=== PATIENT | male | born 1990 | race Caucasian/White ===

== ENCOUNTER 2016-11-03 19:03 | Emergency (ER) | payer SELFPAY ==
[~2016-11-03] VITALS: Ht 180.3 cm; Wt 74.8 kg
[~2016-11-03 19:03] MED LIST: MUPI15CR TP; SULF1TAB24 PO
--- NOTE | 2016-11-03 20:57 | PHYS DOC ---
General Chief Complaint: LOWER EXT PAIN Stated Complaint: LEFT LEG PAIN Time Seen by MD: 19:25 Source: patient Problems: History of Present Illness Initial Comments Patient here for left thigh swelling. Patient says over the last week, he's had a feeling of discomfort over the lateral aspect of left thigh. About 2 days ago he noted some redness and swelling over the area, which seems to be getting worse today. He has no history of injury or trauma to the area, no history of direct contacts to the area such as a heating pad for another object. He's had no fever or chills with this. Is no runny nose or sore throat. There is no chest pain or shortness of breath. He has no nausea vomiting or abdominal pain. No change in bowel or bladder habits. He states he has some chronic low back pain due to degenerative disease but this is not acutely changed or different anyway. He denies any other focal extremity or neurologic complaints and specifically denies any distal complaints of weakness numbness or tingling within the left lower extremity. Patient's done nothing for this prior to arrival in the ER no factors are noted that increase or decrease his discomfort. Patient states he was over at [facility] today but they were apparently dealing with an irate prisoner and he decided to come over here to be seen faster. Patient's past nuchal history is remarkable for degenerative disc disease as noted. He does admit to a history of IV drug abuse and has been seen previously for cellulitis of the hand. He says his been on Septra multiple times for skin infections as well. He also has hepatitis C as a result of IV drug use. He smokes a half-pack of cigarettes daily. He is nonuser of ethanol. He does admit to IV drug use. He is to do methamphetamine and narcotics, but is really doing opiates mostly now. He last shot up a few weeks ago. He says he shoots up in his arms only and has never used injection site in his legs or feet. When asked, he really has no interest in detox or rehabilitation tonight. He says he was most recently in [facility] and he didn't do well there. Allergies: Coded Allergies: No Known Drug Allergies (Unverified , 05/13/16) Past Medical History Medical History: other Surgical History: noncontributory Social History Smoker: less than 1 pack/day Alcohol: none Drugs: other Review of Systems All Other Systems: Reviewed and Negative Physical Exam General Appearance: WD/WN, no apparent distress Neck: full range of motion, supple, normal inspection Respiratory: lungs clear, normal breath sounds, no respiratory distress Cardiovascular: regular rate, rhythm, no edema Gastrointestinal: non tender, soft, no organomegaly Back: no CVA tenderness, no vertebral tenderness Extremities: swelling, other Neurologic/Psychiatric: no motor/sensory deficits, alert, normal mood/affect, oriented x 3 Skin: warm/dry Lymphatic: no adenopathy Comments Generally this well-developed well-nourished white male who looks significantly older than his stated age. Vitals are as noted. Pertinent findings on physical exam showed chest to be clear. Cardiac vascular exams regular rate and rhythm without murmur. The abdomen is soft and nontender. Back is without CVA tenderness. Extremities show the patient have about a 7 x 6 cm area of warmth, erythema, mild edema, and mild induration located over the middle third of the lateral left thigh. There is a small jagged red streak extending inferiorly down towards the junction of the distal and middle third, but no red streaks ascending. There is mildly tender. There is no drainage or discharge. There is no signs of trauma. There is no fluctuance or suggestion of abscess. There is no distal motor sensory or vascular deficits noted within the left lower extremity. Patient is awake alert oriented and cooperative. Remainder of physical exam is clinically unremarkable. Orders, Labs, Meds Old charts note a single prior ER visit last year for left upper chili cellulitis and polysubstance abuse. X-rays the left femur show no acute bony changes per the emergency physician. 2100 Patient resting comfortably ER. He's been extremely cooperative with us, but unfortunately because of his previous history of IV drug abuse really has poor vascular access, we've not been able to obtain any labs or start an IV. Patient would really like to avoid any further needle sticks at all possible. I did discuss with him that at this time, I think will have to go with the working diagnosis of cellulitis. There is no signs of injury or trauma, no signs of abscess, and no distal lower extremity edema without redness or cords suggestive of DVT. I suggested this time, we are going and started on some antibiotics. We will go ahead and Septra, with his history of drug use and the likelihood of MRSA infection. We'll give him a first dose here in the ED as well as a prescription for home. He would like something for pain, and I do want to stay away from narcotics. He has no seizure history so I will give him an Ultram here and a prescription for the same. I did have a detailed discussion with the patient regarding discharge instructions. Again, we really have an incomplete evaluation, though I think this most likely cellulitis. He states he has not shot up in his legs or feet at all. We'll go ahead and give him started on some antibiotics noted. I did draw marker line around the area of redness that he can track. He voiced understanding of the need to follow up with primary care as well as to return immediately for increasing redness, increasing pain, red streaks going up the leg, nausea vomiting, fever chills, or other systemic symptoms. He seems reasonably medically aware and I think we' ll follow these instructions. He appears stable, in no acute discomfort distress , and okay for discharge home at this time. SANDRA MATIAS MD Nov 03, 2016 20:57
[2016-11-03 21:10] VITALS: BP 111/52
[2016-11-03] MEDS: TRAMADOL 50 MG TABLET. PO ONE (21:10)
[2016-11-03] MEDS: SMZ/TMP 800/160MG TABLET. PO ONE (21:10)
--- NOTE | 2016-11-04 08:50 | RAD ---
Indication pain. AP and lateral views of the left femur were obtained. No bony abnormality is seen
== END 2016-11-03 21:10 | disposition home or self-care (01) ==
LOC: ER 19:03
DX: L03.116 Cellulitis of left lower limb (principal); G89.29 Other chronic pain; F17.210 Nicotine dependence, cigarettes, uncomplicated; F11.10 Opioid abuse, uncomplicated; F15.10 Other stimulant abuse, uncomplicated
CPT/HCPCS: 73552; 99284

== ENCOUNTER 2016-11-07 15:08 | Emergency (ER) | payer SELFPAY ==
[~2016-11-07] VITALS: Ht 180.3 cm; Wt 74.8 kg
[2016-11-07 15:23] VITALS: BP 111/52
[2016-11-07] MEDS ORDERED: VANCOMYCIN 1 GM in IV NORMAL SALINE 250ML 250 ML IV ONE (16:00)
[2016-11-07] MEDS ORDERED: IV NORMAL SALINE 1,000ML 1,000 ML IV ONE (16:15)
--- NOTE | 2016-11-07 16:18 | ED.ADGEN ---
Past History Past Medical History: Other Past Surgical History: No Surgical History Alcohol Use: Occasionally Drug Use: Amphetamine, Heroin, Marijuana, Methamphetamine, Opiates Adult General Chief Complaint Chief Complaint Left leg pain swelling and redness HPI HPI Patient is a 26-year-old male with history of IV drug abuse who presents with left thigh redness, swelling tenderness over mid distal thigh induration. Some tenderness to palpation. Patient denies fever chills, nausea vomiting sweats. States he last used IV drugs Review of Systems Review of Systems ROS as per HPI. Current Medications Current Medications Current Medications Medications (Trade) Dose Ordered Sig/Tiarra Start Time Stop Time Status Last Admin Dose Admin Sodium Chloride 1,000 ml @ 1,000 mls/hr 1X ONCE 11/07/16 16:15 11/07/16 17:14 Vancomycin HCl 1 gm/Sodium Chloride 250 ml @ 250 mls/hr 1X ONCE 11/07/16 16:00 11/07/16 16:05 DC Vancomycin HCl/ Sodium Chloride (Iv Sodium Chloride 0.9% 500ml) 500 ml @ 250 mls/hr 1X ONCE 11/07/16 16:30 11/07/16 18:29 Allergies Allergies Allergies Coded Allergies Type Severity Reaction Last Updated Verified No Known Drug Allergies 05/13/16 No Physical Exam Physical Exam Constitutional: Well developed, well nourished, no acute distress, non-toxic appearance. HENT: Normocephalic, atraumatic, bilateral external ears normal. Eyes: PERRLA, EOMI, conjunctiva normal. Neck: Normal range of motion, no tenderness. Cardiovascular:Heart rate regular rhythm. Lungs & Thorax: Bilateral breath sounds clear to auscultation. Abdomen: Bowel sounds normal, soft, no tenderness. Extremities: Left quadriceps, tenderness erythema over proximal 40% of mid and distal thigh. Recent track dwyer left upper extremity. Neurologic: Alert and oriented X 3, normal motor function, normal sensory function, no focal deficits noted. Current Patient Data Vital Signs Vital Signs Date Time Temp Pulse Resp B/P Pulse Ox O2 Delivery O2 Flow Rate FiO2 11/07/16 15:23 109 18 98 Room Air EKG EKG [] Radiology/Procedures Radiology/Procedures [] Course & Med Decision Making Course & Med Decision Making Pertinent Labs and Imaging studies reviewed. (See chart for details) [Patient eloped without warning prior to lab and treatment. Patient was witnessed on security camera to get into car and drive out of [place] block.] Final Impression Final Impression [1 left leg cellulitis 2. History of IV drug abuse] Problems: Dragon Disclaimer Dragon Disclaimer This electronic medical record was generated, in whole or in part, using a voice recognition dictation system. EDVIN RAUSCH DO Nov 07, 2016 16:18
[2016-11-07] MEDS ORDERED: VANCOMYCIN 2 GM in IV NORMAL SALINE 500ML 500 ML IV ONE (16:30)
== END 2016-11-07 16:30 | disposition left against medical advice (07) ==
LOC: ER 15:08
DX: L03.116 Cellulitis of left lower limb (principal); F19.10 Other psychoactive substance abuse, uncomplicated; F15.10 Other stimulant abuse, uncomplicated; F11.10 Opioid abuse, uncomplicated
CPT/HCPCS: 99281

== ENCOUNTER 2016-11-30 06:10 | Emergency (ER) | payer SELFPAY ==
[~2016-11-30] VITALS: Ht 180.3 cm; Wt 73.9 kg
[2016-11-30 06:19] VITALS: BP 121/77
--- NOTE | 2016-11-30 06:29 | PHYS DOC ---
Past History Past Medical History: No Pertinent History, Other Additional Past Surgical Histo: multiple abscesses with incision and drainage Smoking: Cigarettes Alcohol Use: Occasionally Drug Use: Amphetamine, Heroin, Marijuana, Methamphetamine, Opiates Adult General Chief Complaint Chief Complaint: CELLULITIS HPI HPI Patient is a pleasant 26-year-old male with a history of polypharmacy drug abuse now just admitted to using opiates and marijuana who presents with cellulitis of his lower legs bilaterally for last 3 days. He's had a history of MSRA in the past he's been on several courses of Bactrim within last year. He denies intravenous drug abuse at this time as used in the past. Denies any fevers or chills he does use [id number] medication to help treat discomfort. He denies any joint pain, shortness of breath, headache, URI symptoms, blood in his urine, night sweats or weight loss, or other systemic complaints. He does not have a PCP. Cellulitis in his lower legs as he exclaims is really minimally painful although the redness and swelling has increased last several days. 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 Neurologic: Denies headache, focal weakness or sensory changes [] Endocrine: Denies polyuria or polydipsia [] Allergies Allergies Allergies Coded Allergies Type Severity Reaction Last Updated Verified No Known Drug Allergies 05/13/16 No Physical Exam Physical Exam Constitutional: Well developed, well nourished, no acute distress, non-toxic appearance. [] HENT: Normocephalic, atraumatic, bilateral external ears normal, oropharynx moist, no oral exudates, nose normal. [] Eyes: PERRLA, EOMI, conjunctiva normal, no discharge. [] Neck: Normal range of motion, no tenderness, supple, no stridor. [] Cardiovascular:Heart rate regular rhythm, no murmur [] Lungs & Thorax: Slight wheeze with exhalation. Skin: Warm, dry, no erythema, no rash. Right lower extremity has a small 2 cm x 3 cm area of redness mildly edematous with no vesicles. No purpura. There is no lymphadenitis associated with it. Skin is warm. On the left ankle area of erythema and edema with mild soft tissue swelling. No vesicles no purpura area 3 by 4 cm. Not circumferential no lymphadenitis noted Back: No tenderness, no CVA tenderness. [] Extremities: No areas of self-inflicted scabs and wounds on his upper and lower extremities. There still track dwyer are evident on his arms with no evidence of common warmth percent as well as puncture wounds. Patient's extremity is demonstrate no signs of Janeway lesions or Osler's nodes On the left thigh patient has a 1 cm x 2 cm circular healing wound. There is granulation tissue and mild erythema around the edges of the wound with no evidence of purulent drainage. Wound edges are tender. There are no satellite lesions. There are no reactive lymphadenopathy in the region. Neurologic: Alert and oriented X 3, normal motor function, normal sensory function, no focal deficits noted. [] Psychologic: Affect normal, judgement normal, mood normal. [] EKG EKG [] Radiology/Procedures Radiology/Procedures [] Course & Med Decision Making Course & Med Decision Making Pertinent Labs and Imaging studies reviewed. (See chart for details) [] Dragon Disclaimer Dragon Disclaimer This chart was dictated in whole or in part using Voice Recognition software in a busy, high-work load, and often noisy Emergency Department environment. It may contain unintended and wholly unrecognized errors or omissions. Departure Departure: Impression: Primary Impression: Cellulitis Additional Impressions: Drug abuse Bronchitis Smoking Disposition: 01 HOME, SELF-CARE Condition: STABLE Referrals: PCPGIOVANI (PCP) Patient Instructions: Acute Bronchitis, Alcohol and Drug Addiction, Finding Treatment, Cellulitis, Smoking Cessation Additional Instructions: Please follow-up with a local PCP for wound management and evaluation in the next 12-24 hours. Please return for any new or increasing symptoms, fever greater than 102.2 despite treatment increasing redness localized swelling or pain. I would advise that he also follow-up with a local pain management doctor and addiction clinic to help you with your issues of opiate addiction. Also advise that he quit smoking to improve her respiratory symptoms. Please return for any questions or concerns. You have been provided a list of local physicians that are taking new patients Scripts Albuterol Sulfate (PROVENTIL HFA INHALER) 6.7 Gm Hfa.aer.ad 1-2 PUFF IH PRN Q4HRS Y for WHEEZING for 7 Days, INHALER 0 Refills Please dispense inhaler with a spacer Prov: TRIXIE DUMONT MD 11/30/16 Clindamycin Hcl (CLINDAMYCIN HCL) 300 Mg Capsule 1 CAP PO TID, #30 CAP Prov: TRIXIE DUMONT MD 11/30/16 Naproxen (NAPROSYN) 500 Mg Tablet 1 TAB PO BID, #20 TAB 1 Refill Prov: TRIXIE DUMONT MD 11/30/16 Problem Qualifiers TRIXIE DUMONT MD November 30, 2016 06:29
[2016-11-30] MEDS ORDERED: ALBU6.7H IH (06:35)
[2016-11-30] MEDS ORDERED: CLIN300C8 PO (06:35)
[2016-11-30] MEDS ORDERED: NAPR500T PO (06:35)
[2016-11-30] MEDS ORDERED: BACITRACIN ZINC TOPICAL OINT PACKET. TP ONE (07:00)
[2016-11-30] MEDS ORDERED: CLINDAMYCIN HCL 150 MG CAPSULE PO ONE (07:00)
== END 2016-11-30 07:00 | disposition home or self-care (01) ==
LOC: ER 06:12
DX: L03.116 Cellulitis of left lower limb (principal); L03.115 Cellulitis of right lower limb; J40 Bronchitis, not specified as acute or chronic; F11.10 Opioid abuse, uncomplicated; F12.10 Cannabis abuse, uncomplicated; F17.210 Nicotine dependence, cigarettes, uncomplicated; F15.10 Other stimulant abuse, uncomplicated
CPT/HCPCS: 99283

== ENCOUNTER 2020-07-23 07:33 | Emergency (ER) | payer SELFPAY ==
[~2020-07-23] VITALS: Ht 180.3 cm; Wt 81.1 kg
[~2020-07-23 07:33] MED LIST changes: +ALBU2.5V8 IH; +CLIN300C9 PO; +NAPR-683 PO
[2020-07-23 07:40] VITALS: BP 137/78
== END 2020-07-23 07:50 | disposition left against medical advice (07) ==
LOC: ER 07:33
DX: S71.101A Unspecified open wound, right thigh, initial encounter (principal); Z53.21 Procedure and treatment not carried out due to patient leaving prior to being seen by health care provider; X58.XXXA Exposure to other specified factors, initial encounter; Y93.89 Activity, other specified; Y92.89 Other specified places as the place of occurrence of the external cause; Y99.8 Other external cause status

== ENCOUNTER 2020-07-30 23:03 | Emergency (ER) | payer SELFPAY ==
[~2020-07-30] VITALS: Ht 180.3 cm; Wt 81.1 kg
--- NOTE | 2020-07-30 23:10 | PHYS DOC ---
Past History Past Medical History: No Pertinent History Past Surgical History: Other Additional Past Surgical Histo: multiple abscesses with incision and drainage Smoking: Cigarettes Alcohol Use: None Drug Use: Methadone, Opiates General Adult HPI: HPI: ".. I got this spider bite on my Rt leg.. I was here the other day.. but I did n't stay... it gotten worse..." Patient is a 30 year old male who presents with above hx and complaints of spider bite last week. Patient does have a large area approximately 8 x 6 cm with a central draining area right mid thigh. Does not appear to be spider bite but an abscess. Patient has history of previous episodes of cellulitis. Patient did present to the ER on did not did not stay to be seen. Prior ED visits on 11/30/2016 for cellulitis. Patient does have a past medical history of multiple abscesses requiring drainage. Patient has history of methamphetamine, heroin, marijuana, other opiates. Patient states his last drug of choice was heroin. Patient does smoke. Patient denies any narcotic use currently. Patient denies any immunosuppression. Patient does not follow-up with primary care. Patient states his tetanus is up-to-date. Patient has no st riations. No right femoral adenopathy. Patient did have pictures of his area of cellulitis last week and pictures showing recent drainage from the abscess site. Review of Systems: Review of Systems: Constitutional: Denies fever or chills Eyes: Denies change in visual acuity HENT: Denies nasal congestion or sore throat Respiratory: Denies cough or shortness of breath Cardiovascular: Denies chest pain or edema GI: Denies abdominal pain, nausea, vomiting, bloody stools or diarrhea : Denies dysuria Musculoskeletal: Denies back pain or joint pain Integument: Complains of abscess and cellulitis right leg Neurologic: Denies headache, focal weakness or sensory changes Endocrine: Denies polyuria or polydipsia Lymphatic: Denies swollen glands Psychiatric: Denies depression or anxiety Family History: Family History: Noncontributory to presentation Current Medications: Current Meds: See nursing for home meds Allergies: Allergies: Allergies Coded Allergies Type Severity Reaction Last Updated Verified No Known Drug Allergies 05/13/16 No Physical Exam: PE: Constitutional: Moderate acute distress, non-toxic appearance. [] HENT: Normocephalic, atraumatic, bilateral external ears normal, oropharynx moist, no oral exudates, nose normal. Poor dentition Eyes: PERRLA, EOMI, conjunctiva normal, no discharge. [] Neck: Normal range of motion, no tenderness, supple, no stridor. [] Cardiovascular:Heart rate regular rhythm, no murmur [] Lungs & Thorax: Bilateral breath sounds equal apex with scattered wheezes auscultation [] Abdomen: Bowel sounds normal, soft, no tenderness, no masses, no pulsatile masses. [] Skin: Warm, dry, no erythema, no rash. Multiple areas of previous abscess sites. Current site right thigh as per HPI Back: No tenderness, no CVA tenderness. [] Extremities: No tenderness, no cyanosis, no clubbing, ROM intact, no edema. [] Neurologic: Alert and oriented X 3, normal motor function, normal sensory function, no focal deficits noted. [] Psychologic: Affect anxious, judgement normal, mood normal. [] EKG: EKG: [] Radiology/Procedures: Radiology/Procedures: [] Heart Score: Risk Factors: Risk Factors: DM, Current or recent (<one month) smoker, HTN, HLP, family history of CAD, obesity. Risk Scores: Score 0 - 3: 2.5% MACE over next 6 weeks - Discharge Home Score 4 - 6: 20.3% MACE over next 6 weeks - Admit for Clinical Observation Score 7 - 10: 72.7% MACE over next 6 weeks - Early Invasive Strategies Course & Med Decision Making: Course & Med Decision Making Pertinent Labs and Imaging studies reviewed. (See chart for details) Procedure note-incision and drainage-area of abscess cleaned of Betadine. Used 15 blade to drain area just under the skin next to spontaneous draining site right thigh. Moderate amount of purulent material removed. Dressing applied. Patient use warm compresses of salt water, Epson salts, 4 times a day. After compresses massage with Polysporin. Patient take Bactrim DS twice a day for the next 10 days. Patient warned that if no improvement may need further excision of abscess site\\and IV antibiotics. Must follow-up with primary care. Impression: 1. Cellulitis right thigh 2. History of polysubstance abuse methamphetamine, heroin, marijuana, opiates [] Dragon Disclaimer: Dragon Disclaimer: This electronic medical record was generated, in whole or in part, using a voice recognition dictation system. Departure Departure: Referrals: PCP,NO (PCP) Scripts Sulfamethoxazole/Trimethoprim (BACTRIM DS TABLET) 1 Each Tablet 1 TAB PO BID for cellulitis for 10 Days, #20 TAB 0 Refills Prov: TEN TUCKER MD 07/30/20 Dragon Disclaimer This chart was dictated in whole or in part using Voice Recognition software in a busy, high-work load, and often noisy Emergency Department environment. It may contain unintended and wholly unrecognized errors or omissions. Dragon Disclaimer This chart was dictated in whole or in part using Voice Recognition software in a busy, high-work load, and often noisy Emergency Department environment. It may contain unintended and wholly unrecognized errors or omissions. TEN TUCKER MD Jul 30, 2020 23:10
[2020-07-30] MEDS ORDERED: cefTRIAXone IM 1 GM VIAL IM ONE (23:15)
[2020-07-30] MEDS ORDERED: SMZ/TMP 800/160MG TABLET. PO ONE (23:15)
[2020-07-30] MEDS ORDERED: SULF1TAB24 PO (23:17)
[2020-07-30 23:50] VITALS: BP 1/1
== END 2020-07-30 23:50 | disposition home or self-care (01) ==
LOC: ER 23:03
DX: L03.115 Cellulitis of right lower limb (principal); L02.415 Cutaneous abscess of right lower limb; F15.10 Other stimulant abuse, uncomplicated; F12.10 Cannabis abuse, uncomplicated; F11.10 Opioid abuse, uncomplicated; F19.10 Other psychoactive substance abuse, uncomplicated; F17.210 Nicotine dependence, cigarettes, uncomplicated
CPT/HCPCS: 10060; 96372; 99283; J0696

== ENCOUNTER 2021-11-20 23:38 | Emergency (ER) | payer SELFPAY ==
[~2021-11-20] VITALS: Ht 180.3 cm; Wt 85.0 kg
[~2021-11-20 23:38] MED LIST changes: +CLIN-95 PO; -CLIN300C9 PO
--- NOTE | 2021-11-20 23:55 | PHYS DOC ---
Past History Past Medical History: No Pertinent History Past Surgical History: Other Additional Past Surgical Histo: multiple abscesses with incision and drainage Smoking: Cigarettes Alcohol Use: None Drug Use: Methadone, Opiates General Adult EDM: Chief Complaint: FACE PROBLEM HPI: HPI: Patient is a 31-year-old male who is here with left-sided facial swelling. He reports that the swelling just began today. He has a rather large wound on his left cheek, adjacent to his mouth, which he also initially tried to tell me that he just noticed within the last 24 hours. He apparently this is been picking at this area for several days. He denies fevers or chills. He denies sore throat, difficulty swallowing, difficulty breathing. 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 He denies using recently, however. He does appear to be agitated, he admits to aggressively picking at this lesion on his face. H e reports that his tetanus is up-to-date within the last 5 years. He denies any other specific trauma or injury. Denies chest pain, cough, dyspnea. Denies abdominal pain, nausea, vomiting. He reports that he has a history of MRSA infections. Review of Systems: Review of Systems: Constitutional: Denies fever or chills Eyes: Denies change in visual acuity HENT: Denies nasal congestion or sore throat. Denies voice changes, denies difficulty swallowing. Left-sided facial swelling and left facial wound. Respiratory: Denies cough or shortness of breath Cardiovascular: Denies chest pain or edema GI: Denies abdominal pain, nausea, vomiting Musculoskeletal: Denies back pain or joint pain Integument: Open wound of the left face, left facial swelling, redness and pain Neurologic: Denies headache, focal weakness or sensory changes Psychiatric: Agitation, anxiety, history of polysubstance abuse Allergies: Allergies: Allergies Coded Allergies Type Severity Reaction Last Updated Verified No Known Drug Allergies 05/13/16 No Physical Exam: PE: Constitutional: He is disheveled, appears older than stated age, he is somewhat chronically ill-appearing, though he is nontoxic and not acutely ill-appearing. HENT: Normocephalic, atraumatic. There is a rather large area of soft tissue swelling, erythema and induration of the left cheek, buccal area, there is a rather large open wound of the left cheek, just lateral to and above the corner of the left side of his mouth. There is a large amount of soft tissue swelling around this area, but no focal fluctuance or drainage is appreciated. No drooling or trismus. Oropharynx is patent and clear. Uvula is midline. Multiple dental caries, very poor dentition is noted. External ears are normal bilaterally. Nares are patent clear without rhinorrhea epistaxis. No palpable crepitus or subcutaneous emphysema. No dusky discoloration of the skin. Eyes: PERRL, EOMI, conjunctiva normal, no discharge. [] Neck: Normal range of motion, no tenderness, supple, no stridor. [] Cardiovascular:Heart rate regular rhythm Lungs & Thorax: Bilateral breath sounds clear to auscultation [] Abdomen: Bowel sounds normal, soft, no tenderness, no masses, no pulsatile masses. [] Skin: Left-sided facial swelling, cellulitis, large left facial wound. No obvious focal area of drainable abscess or spontaneous drainage Back: No tenderness, no CVA tenderness. [] Extremities: No tenderness, no cyanosis, no clubbing, ROM intact, no edema. [] Neurologic: Alert and oriented X 3, normal motor function, normal sensory function, no focal deficits noted. [] Psychologic: He is somewhat uncooperative and agitated, intermittently hostile, easily redirectable. Denies SI or HI symptoms. EKG: EKG: [] Radiology/Procedures: Radiology/Procedures: IMAGING REPORT Signed PATIENT: FRANCOIS GUO ACCOUNT: [id number] : 1990 LOCATION: ER AGE: 31 SEX: M EXAM STATUS: REG ER ORD. PHYSICIAN: JENAE SMART DO REASON: left buccal swelling, cellulitis.NON CONTRAST DUE TO IV PLACEMENT PROCEDURE: CT MAXILLOFACIAL WO CONTRAST INDICATION: Reason: left buccal swelling, cellulitis.NON CONTRAST DUE TO IV PLACEMENT / Spl. Instructions: / History: . COMPARISON: None. TECHNIQUE: Axial CT images obtained through the face without contrast. One or more of the following individualized dose reduction techniques were utilized for this examination: 1. Automated exposure control; 2. Adjustment of the mA and/or kV according to patient size; 3. Use of iterative reconstruction technique. FINDINGS: Odontogenic disease is identified with dental caries. No acute fracture or dislocation. Predominantly of the left side of the face there is a large amount of edema and swelling seen within the soft tissues. IMPRESSION: * Large amount of edema and soft tissue swelling is seen at the left side of the face. Can be from causes such as cellulitis and phlegmon formation. Cannot exclude rim enhancing drainable abscess on noncontrast examination. Electronically signed by: Jessa Joyner MD (11/21/2021 1:59 AM) [id number] DICTATED AND SIGNED BY: JESSA JOYNER MD DATE: 11/21/21 0153 CC: JENAE SMART DO; PCP,NO ~ Heart Score: C/O Chest Pain: No Risk Factors: Risk Factors: DM, Current or recent (<one month) smoker, HTN, HLP, family history of CAD, obesity. Risk Scores: Score 0 - 3: 2.5% MACE over next 6 weeks - Discharge Home Score 4 - 6: 20.3% MACE over next 6 weeks - Admit for Clinical Observation Score 7 - 10: 72.7% MACE over next 6 weeks - Early Invasive Strategies Course & Med Decision Making: Course & Med Decision Making Pertinent Labs and Imaging studies reviewed. (See chart for details) The patient had limited IV access. External jugular IV is placed. I had initially ordered CT of the maxillofacial with contrast, but radiologist declined to have IV contrast injected through this. He is given a dose of IV vancomycin. Blood cultures were obtained. Noncontrasted study does not reveal any obvious bony abnormality, though it is possible he still might have underlying deep space abscess. I have discussed the findings, differential diagnosis and plan of care with him. I recommended hospitalization for IV antibiotics. He repeatedly and adamantly refuses this. He reports that he not miss any work, he reports that if he does not work, he will be evicted. He understands the risks of leaving without appropriate medical treatment including admission for IV antibiotics. He has previously taken clindamycin without difficulty. He will be prescribed clindamycin and topical mupirocin. He is given outpatient resources to establish care with a PCP. I have strongly encouraged him to stop picking and poking at the wound on his face, as this will only certainly exacerbate his symptoms, possibly do more severe or serious infection. I did attempt to give him very strict return precautions. He is insistent on leaving, repeatedly refuses admission. He is awake, alert, oriented x3, he appears to be appropriate to make the decision to leave. He verbalizes understanding of instructions provided. [place] Disclaimer: [place] Disclaimer: This electronic medical record was generated, in whole or in part, using a voice recognition dictation system. Departure Departure: Impression: Primary Impression: Facial cellulitis Additional Impression: Infected wound Disposition: HOME / SELF CARE / HOMELESS Condition: STABLE Referrals: PCP,NO (PCP) Patient Instructions: Cellulitis Additional Instructions: Take the full course of antibiotics as directed until gone. Please return to the ER immediately for more severe pain, severe swelling, temperature 100.4 or higher, shortness of breath, difficulty swallowing, difficulty opening and closing her jaw or for any other concerns. Keep your open wound clean and dry, use plain soap and water. Please avoid picking and poking at this wound, as the swelling make your infection worse. Please follow-up with a primary care physician. Scripts Mupirocin Calcium (MUPIROCIN) 15 Gm Cream..g. 1 SILVANA TP TID for MRSA for 10 Days, #30 GM 0 Refills Prov: JENAE SMART DO 11/21/21 Clindamycin Hcl (CLINDAMYCIN HCL) 300 Mg Capsule 1 CAP PO TID for cellulitis for 10 Days, #30 CAP Prov: JENAE SMART DO 11/21/21 JENAE SMART DO November 20, 2021 23:55
[2021-11-21] MEDS ORDERED: VANCOMYCIN 1 GM in IV NORMAL SALINE 250ML 250 ML IV ONE
[2021-11-21] MEDS ORDERED: CONTRAST GIVEN. MC PRN (00:15)
[2021-11-21] MEDS ORDERED: IV NORMAL SALINE 500ML 500 ML ONE (00:19)
[2021-11-21] MEDS ORDERED: VANCOMYCIN 1 GM VIAL. ONE ×2 (00:19)
[2021-11-21] MEDS ORDERED: IOHEXOL 300 MG/ML 75 ML VIAL. IV ONE (00:30)
[2021-11-21] MEDS ORDERED: VANCOMYCIN 2 GM in IV NORMAL SALINE 500ML 500 ML IV ONE (00:30)
[2021-11-21 01:38] LABS: BASO # 0.1 x10^3/uL (0.0-0.2); BASO % 1 % (0-3); EOS # 0.1 x10^3/uL (0.0-0.7); EOS % 1 % (0-3); HEMATOCRIT 35.2 % (39.0-53.0); HEMOGLOBIN 12.1 g/dL (13.0-17.5); LYMPH # 1.9 x10^3/uL (1.0-4.8); LYMPH % 30 % (24-48); MEAN CORPUSCULAR HEMOGLOBIN 32 pg (25-35); MEAN CORPUSCULAR HGB CONC 34 g/dL (31-37); MEAN CORPUSCULAR VOLUME 93 fL (79-100); MONO # 0.6 x10^3/uL (0.0-1.1); MONO % 10 % (0-9); NEUT # 3.7 x10^3uL (1.8-7.7); NEUT % 58 % (31-73); PLATELET COUNT 135 x10^3/uL (140-400); RED CELL DISTRIBUTION WIDTH 14.7 % (11.5-14.5); WHITE BLOOD COUNT 6.4 x10^3/uL (4.0-11.0)
[2021-11-21 01:43] LABS: CALCIUM 8.6 mg/dL (8.5-10.1); GFR 86.6; POTASSIUM 3.3 mmol/L (3.5-5.1)
--- NOTE | 2021-11-21 02:02 | RAD ---
INDICATION: Reason: left buccal swelling, cellulitis.NON CONTRAST DUE TO IV PLACEMENT / Spl. Instruct ions: / History: . COMPARISON: None. TECHNIQUE: Axial CT images obtained through the face without contrast. One or more of the following individualized dose reduction techniques were utilized for this examinat ion: 1. Automated exposure control; 2. Adjustment of the mA and/or kV according to patient size; 3 . Use of iterative reconstruction technique. FINDINGS: Odontogenic disease is identified with dental caries. No acute fracture or dislocation. Predominantly of the left side of the face there is a large amount of edema and swelling seen within the soft tissues. IMPRESSION: * Large amount of edema and soft tissue swelling is seen at the left side of the face. Can be from c auses such as cellulitis and phlegmon formation. Cannot exclude rim enhancing drainable abscess on no ncontrast examination. Electronically signed by: Gelacio Joyner MD (11/21/2021 1:59 AM) [id number]
[2021-11-21] MEDS ORDERED: CLIN-95 PO (02:38)
[2021-11-21] MEDS ORDERED: MUPI15CR8 TP (02:38)
[2021-11-21 03:45] VITALS: BP 116/65
== END 2021-11-21 03:56 | disposition home or self-care (01) ==
LOC: ER 23:38
DX: S01.402A Unspecified open wound of left cheek and temporomandibular area, initial encounter (principal); L03.211 Cellulitis of face; F17.210 Nicotine dependence, cigarettes, uncomplicated; X58.XXXA Exposure to other specified factors, initial encounter; Y93.89 Activity, other specified; Y92.89 Other specified places as the place of occurrence of the external cause; Y99.8 Other external cause status
CPT/HCPCS: 36415; 70486; 80048; 83605; 85025; 87040; 96365; 96366; 99285; J3370; J7040